=== PATIENT | male | born 1980 | race American Indian/Alaskan Native ===

== ENCOUNTER 2017-04-08 17:18 | Emergency (ER) | payer SELFPAY ==
[2017-04-08 17:22] VITALS: O2SAT 99; BMI 27.1
--- NOTE | 2017-04-08 18:23 | ED PDOC ---
Arrival/HPI - General Chief Complaint: Dental Pain Time Seen by Provider: 04/08/17 17:38 Historian: Patient - History of Present Illness Narrative History of Present Illness (Text): 04/08/17 18:23 36-year-old male presents today with left lower dental pain 2 days. Patient states he's been having pain in the left lower molar on-and-off every 7 or 8 months. Patient states something happen over the past 2 days and now the pain is severe. Patient describes a throbbing aching pain radiating into the left jaw coming from the left lower molar. Patient states she's been taking Motrin and Tylenol at home without improvement in his symptoms. He denies trismus or drooling. Denies fevers or chills. Denies any trauma or injury. No other complaints. Time/Duration: Other (2 DAYS) Symptom Course: Worsening Quality: Aching, Throbbing Severity Level: 7 Past Medical History - Provider Review Nursing Documentation Reviewed: Yes - Travel History Have you recently traveled outside [place] w/in the past 3 mons?: No - Tetanus Immunization Tetanus Immunization: Unknown - Psychiatric Hx Substance Use: No Family/Social History - Physician Review Nursing Documentation Reviewed: Yes Family/Social History: Unknown Family HX Smoking Status: Never Smoked Hx Alcohol Use: No Hx Substance Use: No Allergies/Home Meds Allergies/Adverse Reactions: Allergies Penicillins Allergy (Verified 04/08/17 17:22) URTICARIA Review of Systems - Review of Systems Constitutional: absent: Fatigue, Fevers ENT: Other (+ dental pain). absent: Sore Throat, Sinus Congestion Respiratory: absent: SOB, Cough Cardiovascular: absent: Chest Pain Gastrointestinal: absent: Abdominal Pain, Vomiting Musculoskeletal: absent: Arthralgias, Back Pain, Neck Pain Skin: absent: Rash, Pruritis Neurological: absent: Headache, Dizziness Psychiatric: absent: Anxiety, Depression Physical Exam Vital Signs Reviewed: Yes Vital Signs Temp Pulse Resp BP Pulse Ox 04/08/17 17:19 98.6 F 86 18 151/92 H 99 Temperature: Afebrile Blood Pressure: Hypertensive Pulse: Regular Respiratory Rate: Normal Appearance: Positive for: Well-Appearing, Non-Toxic, Comfortable Pain Distress: None Mental Status: Positive for: Alert and Oriented X 3 - Systems Exam Head: Present: Atraumatic. No: Swelling Conjunctiva: Present: Normal Mouth: Present: Moist Mucous Membranes, Normal Lips, Normal Tounge. No: Drooling, Trismus, Normal Teeth (+ ttp over left lower molar; no edema, no erythema, no abscess noted; no trismus or drooling. ) Pharnyx: Present: Normal. No: ERYTHEMA, EXUDATE, TONSILS ENLARGED, Peritonsilar Swelling, Uvular Deviation, Muffled/Hoarse Voice, Strider, Soft Palate/Uvular Edema Nose (External): Present: Atraumatic Neck: Present: Normal Range of Motion, Trachea Midline. No: Lymphadenopathy Respiratory/Chest: Present: Clear to Auscultation, Good Air Exchange. No: Respiratory Distress, Accessory Muscle Use Cardiovascular: Present: Regular Rate and Rhythm, Normal S1, S2. No: Murmurs Neurological: Present: GCS=15 Skin: Present: Warm, Dry, Normal Color. No: Rashes Psychiatric: Present: Alert, Oriented x 3 Medical Decision Making ED Course and Treatment: 04/08/17 18:17 Patient is nontoxic well-appearing in no distress with stable vital signs No trismus or drooling, moist mucous membranes Clindamycin, Toradol, tramadol Patient reassessment: Patient is feeling better after medications. I advised follow-up with the dentist within the next 2 days. I advised immediate return is symptoms worsen persist or if new concerning symptoms develop Patient verbalized full agreement with and understanding of discharge instructions. States that he agrees with the plan and disposition. Verbalized and repeated discharge instructions and plan. I have given the patient opportunity to ask any additional questions. all aspects of this case were discussed the attending of record. Impression: Toothache Motrin every 6 hours as needed for pain tramadol; 1 tablet every 6 hours as needed for moderate to severe pain; may cause drowsiness. Clindamycin 1 tablet 3 times daily x 10 days Follow-up with the dentist within the next 2 days Follow up with the primary care physician within the next 2 days. Return immediately if symptoms worsen persist or if new concerning symptoms develop - Medication Orders Current Medication Orders: Clindamycin HCl (Cleocin) 150 mg PO STAT STA PRN Reason: Protocol Stop: 04/08/17 18:16 Ketorolac Tromethamine (Toradol) 60 mg IM STAT STA Stop: 04/08/17 18:16 Disposition/Present on Arrival - Present on Arrival Any Indicators Present on Arrival: No History of DVT/PE: No History of Uncontrolled Diabetes: No Urinary Catheter: No History of Decub. Ulcer: No History Surgical Site Infection Following: None - Disposition Have Diagnosis and Disposition been Completed?: Yes Diagnosis: Toothache Disposition: HOME/ ROUTINE Disposition Time: 18:16 Patient Plan: Discharge Condition: GOOD Discharge Instructions (ExitCare): Toothache (ED) Additional Instructions: Motrin every 6 hours as needed for pain tramadol; 1 tablet every 6 hours as needed for moderate to severe pain; may cause drowsiness. Clindamycin 1 tablet 3 times daily x 10 days Follow-up with the dentist within the next 2 days Follow up with the primary care physician within the next 2 days. Return immediately if symptoms worsen persist or if new concerning symptoms develop Prescriptions: Clindamycin [Cleocin] 150 mg PO TID #21 cap Ibuprofen [Motrin] 600 mg PO Q6H PRN #20 tab PRN Reason: pain/fever reduction traMADol [Ultram] 50 mg PO Q6H PRN #6 tab PRN Reason: moderate to severe pain Referrals: Yared Al DMD [Non-Staff] - Follow up with primary [facility] [place] [Outside] - Follow up with primary Fili Dickinson MD [Staff Provider] - Follow up with primary Forms: WORK NOTE
[2017-04-08 18:36] VITALS: BP 131/65; PULSE 85; RESP 20; TEMP 97
== END 2017-04-08 19:00 | disposition home or self-care (01) ==
LOC: ED 17:18
DX: K08.89 Other specified disorders of teeth and supporting structures (principal)
CPT/HCPCS: 96372; 99283; J1885

== ENCOUNTER 2017-08-15 16:05 | Emergency (ER) | payer OTHER ==
[2017-08-15 16:06] VITALS: BMI 27.1
[2017-08-15 16:47] VITALS: TEMP 98.7; O2SAT 99
[2017-08-15] MEDS ORDERED: cefTRIAXone (Rocephin) 250 mg Inj IM STA (17:33)
[2017-08-15 17:36] LABS: URINE BILIRUBIN NEGATIVE (NEGATIVE); URINE BLOOD NEGATIVE (NEGATIVE); URINE GLUCOSE (UA) NEGATIVE (NEGATIVE); URINE KETONE NEGATIVE (NEGATIVE); URINE LEUKOCYTE ESTERASE NEGATIVE Leu/uL (NEGATIVE); URINE PROTEIN NEGATIVE mg/dL (<30 mg/dL); URINE UROBILINOGEN 0.2 E.U./dL (<1 E.U./dL)
[2017-08-15 17:37] LABS: URINE COLOR YELLOW (YELLOW)
[2017-08-15 17:38] LABS: URINE APPEARANCE CLEAR (CLEAR)
--- NOTE | 2017-08-15 17:41 | ED PDOC ---
Arrival/HPI - General Chief Complaint: Male Genitourinary Time Seen by Provider: 08/15/17 17:32 Historian: Patient - History of Present Illness Narrative History of Present Illness (Text): 08/15/17 17:40 A 36 year old male, with no significant past medical history, presents to the emergency department complaining of an isolated episode of blood tinged in his urine earlier today. Patient notes mild suprapubic discomfort. He denies any unprotected sexual contact besides his fiance of 8 months. Patient denies any fever, chills, rigors, nausea, vomiting, back pain, or any other complaints. Patient denies history of kidney stones. Time/Duration: Other (earlier today) Symptom Course: Unchanged Quality: Other Context: Home Past Medical History - Provider Review Nursing Documentation Reviewed: Yes - Infectious Disease Hx of Infectious Diseases: None - Tetanus Immunization Tetanus Immunization: Unknown - Psychiatric Hx Substance Use: No - Anesthesia Hx Anesthesia: No Family/Social History - Physician Review Nursing Documentation Reviewed: Yes Family/Social History: No Known Family HX Smoking Status: Never Smoked Hx Alcohol Use: No Hx Substance Use: No Allergies/Home Meds Allergies/Adverse Reactions: Allergies Penicillins Allergy (Verified 04/08/17 17:22) URTICARIA Home Medications: Home Meds Medication Instructions Recorded Confirmed No Known Home Med 08/15/17 08/15/17 Review of Systems - Physician Review All systems were reviewed & negative as marked: Yes - Review of Systems Constitutional: absent: Fevers, Night Sweats Gastrointestinal: absent: Nausea, Vomiting Genitourinary Male: Hematuria (1 episode) Musculoskeletal: absent: Back Pain Physical Exam Vital Signs Reviewed: Yes Vital Signs Temp Pulse Resp BP Pulse Ox 08/15/17 16:42 98.7 F 66 16 129/76 99 Temperature: Afebrile Blood Pressure: Normal Pulse: Regular Respiratory Rate: Normal Appearance: Positive for: Well-Appearing, Non-Toxic, Comfortable Pain Distress: None Mental Status: Positive for: Alert and Oriented X 3 - Systems Exam Head: Present: Atraumatic, Normocephalic Pupils: Present: PERRL Extroacular Muscles: Present: EOMI Conjunctiva: Present: Normal Mouth: Present: Moist Mucous Membranes Neck: Present: Normal Range of Motion Respiratory/Chest: Present: Clear to Auscultation, Good Air Exchange. No: Respiratory Distress, Accessory Muscle Use Cardiovascular: Present: Regular Rate and Rhythm, Normal S1, S2. No: Murmurs Abdomen: Present: Normal Bowel Sounds. No: Tenderness, Distention, Peritoneal Signs Back: Present: Normal Inspection Upper Extremity: Present: Normal Inspection. No: Cyanosis, Edema Lower Extremity: Present: Normal Inspection. No: Edema Neurological: Present: GCS=15, CN II-XII Intact, Speech Normal Skin: Present: Warm, Dry, Normal Color. No: Rashes Psychiatric: Present: Alert, Oriented x 3, Normal Insight, Normal Concentration Medical Decision Making ED Course and Treatment: 08/15/17 17:40 Impression: A 36 year old male with 1 episode of blood tinged in urine. Patient notes mild suprapubic discomfort. Plan: -- Urine culture, Urinalysis -- Rocephin, Zithromax -- Reassess and disposition Progress Notes: - Lab Interpretations Lab Results: Lab Results 08/15/17 17:15: Urine Color Yellow, Urine Appearance Clear, Urine pH 6.0, Ur Specific [place] 1.025, Urine Protein Negative, Urine Glucose (UA) Negative, Urine Ketones Negative, Urine Blood Negative, Urine Nitrate Negative, Urine Bilirubin Negative, Urine Urobilinogen 0.2, Ur Leukocyte Esterase Negative I have reviewed the lab results: Yes - Medication Orders Current Medication Orders: Discontinued Medications Azithromycin (Zithromax) 1,000 mg PO STAT STA PRN Reason: Protocol Stop: 08/15/17 17:35 Last Admin: 08/15/17 17:43 Dose: 1,000 mg Ceftriaxone Sodium (Rocephin) 250 mg IM STAT STA PRN Reason: Protocol Stop: 08/15/17 17:34 - Scribe Statement The provider has reviewed the documentation as recorded by the Clariibyessenia [place] training under Irma Pham Provider Scribe Attestation: All medical record entries made by the Scribe were at my direction and personally dictated by me. I have reviewed the chart and agree that the record accurately reflects my personal performance of the history, physical exam, medical decision making, and the department course for this patient. I have also personally directed, reviewed, and agree with the discharge instructions and disposition. Disposition/Present on Arrival - Present on Arrival Any Indicators Present on Arrival: No History of DVT/PE: No History of Uncontrolled Diabetes: No Urinary Catheter: No History of Decub. Ulcer: No History Surgical Site Infection Following: None - Disposition Have Diagnosis and Disposition been Completed?: Yes Diagnosis: Hematuria, Dysuria Disposition: HOME/ ROUTINE Disposition Time: 18:36 Patient Plan: Discharge Patient Problems: Current Active Problems Problem Status Onset Dysuria Acute Hematuria Acute Condition: IMPROVED Discharge Instructions (ExitCare): Dysuria (ED) Print Language: LUXEMBOURGISH Additional Instructions: Drink plenty of water. You have been treated for "infection" in the urine. Practice pelvic rest over the next week, and we avice testing of your partner meanwhile. return for worsening symptoms. WE have no definitive evidence of you tyshawn a sexually transmited disease but you were presumtively treated for chlymidia /gonorrhea. . Forms: [facility] (Panamanian)
[2017-08-15 18:51] VITALS: BP 125/71; PULSE 63; RESP 18
== END 2017-08-15 18:52 | disposition home or self-care (01) ==
LOC: ED 16:05
DX: R30.0 Dysuria (principal); R31.9 Hematuria, unspecified; Z88.0 Allergy status to penicillin
CPT/HCPCS: 81003; 87086; 96372; 99283; J0696

== ENCOUNTER 2017-10-13 18:39 | Emergency (ER) | payer BC ==
[2017-10-13 18:40] VITALS: BMI 27.1
--- NOTE | 2017-10-13 19:13 | ED PDOC ---
Arrival/HPI - General Chief Complaint: Chest Pain Time Seen by Provider: 10/13/17 19:09 Historian: Patient - History of Present Illness Narrative History of Present Illness (Text): 10/13/17 19:10 pt p/w + sudden onset of left chest pain, worse with movement; at most pain is rated at 7/10; pt states chest pain started last night, remained constant and initially tolerable pain but today, while at work the pain became more intolerable; pt states no fever/chills/sweats, no sob/palpitations, no lightheadedness, no dizziness, no abd pain, no n/v, no numbness/tingling, no urinary/bowel changes, no fall/trauma/sick contact, no travel; pt denied recent surgery; pt denied any rashes/lesions; pt denied recent URI/infection; pt is here for further eval; pt's without other complaints 10/13/17 19:20 10/13/17 19:21 10/13/17 19:23 Family hx: unremarkable no AMI to immediate family members < 50yo no sudden with immediate family members no coagulopathy with immediate family members Time/Duration: 24 hours Symptom Onset: Sudden Symptom Course: Unchanged Quality: Stabbing Severity Level: 7, Severe Context: Home Past Medical History - Provider Review Nursing Documentation Reviewed: Yes - Travel History Have you recently traveled outside [place] w/in the past 3 mons?: No - Past History Past History: No Previous - Infectious Disease Hx of Infectious Diseases: None - Tetanus Immunization Tetanus Immunization: Unknown - Psychiatric Hx Substance Use: No - Anesthesia Hx Anesthesia: No - Suicidal Assessment Feels Threatened In Home Enviroment: No Family/Social History - Physician Review Nursing Documentation Reviewed: Yes Family/Social History: No Known Family HX Smoking Status: Never Smoked Hx Alcohol Use: No Hx Substance Use: No Hx Substance Use Treatment: No Allergies/Home Meds Allergies/Adverse Reactions: Allergies Penicillins Allergy (Verified 10/13/17 18:52) URTICARIA Review of Systems - Review of Systems Constitutional: Normal Eyes: Normal ENT: Normal Respiratory: Normal Cardiovascular: Chest Pain Gastrointestinal: Normal Genitourinary Male: Normal Musculoskeletal: Normal Skin: Normal Neurological: Normal Endocrine: Normal Hemo/Lymphatic: Normal Psychiatric: Normal Physical Exam Vital Signs Reviewed: Yes Vital Signs Temp Pulse Pulse Resp BP Pulse Ox 10/13/17 19:30 77 10/13/17 19:18 98.3 F 80 18 136/81 99 Temperature: Afebrile Blood Pressure: Normal Pulse: Regular Respiratory Rate: Normal Appearance: Positive for: Well-Appearing, Other (slightly uncomfortable, alert/ awake, NAD, resting in bed, cooperative) Pain Distress: None Mental Status: Positive for: Alert and Oriented X 3 - Systems Exam Head: Present: Atraumatic, Normocephalic Pupils: Present: PERRL Extroacular Muscles: Present: EOMI Conjunctiva: Present: Normal Ears: Present: Normal Mouth: Present: Moist Mucous Membranes, Normal Teeth Pharnyx: Present: Normal Nose (External): Present: Atraumatic Nose (Internal): Present: Normal Inspection Neck: Present: Normal Range of Motion, Trachea Midline. No: MIDLINE TENDERNESS Respiratory/Chest: Present: Clear to Auscultation, Good Air Exchange, Other (no chest wall skin lesions noted, no crepitus; + left upper chest wall region point tenderness, no fluctuance noted; CTA b/l, no w/r/r, no accessory muscle use noted, no tachypenia) Cardiovascular: Present: Regular Rate and Rhythm, Normal S1, S2. No: Murmurs, Tachycardic Abdomen: Present: Normal Bowel Sounds, Other (well nourished male, no focal tenderness, no masses/rebound/guarding/rigidity, no rosenbaum's sign, no mcburney' s point tenderness) Back: Present: Normal Inspection. No: CVA Tenderness, Midline Tenderness Upper Extremity: Present: Normal Inspection, Edema, Normal ROM, NORMAL PULSES, Neurovascularly Intact, Capillary Refill < 2s Lower Extremity: Present: Normal Inspection, NORMAL PULSES, Normal ROM, Neurovascularly Intact, Capillary Refill < 2 s. No: CALF TENDERNESS, Carolin's Sign Neurological: Present: GCS=15, CN II-XII Intact, Speech Normal Skin: Present: Warm, Normal Color Psychiatric: Present: Alert, Oriented x 3 Medical Decision Making ED Course and Treatment: 10/13/17 19:14 Impression: chest pain, atypical i have consider all the differential diagnosis regarding pt's chief medical complaints/clinical findings, including but are not limited to: atypical chest pain, unlikely PE/ACS; possible costrocondritis A/P: chest pain - ekg - xray - observe - supportive care 10/13/17 20:38 pt is doing well currently pt is not in any severe pain pt is made aware of pt's medical results pt is encouraged fluids pt will f/u as directed pt will be discharged home Re-evaluation Time: 20:29 Reassessment Condition: Improving,but remains with symptoms - RAD Interpretation Radiology Orders: 10/13/17 19:09 CHEST TWO VIEWS (PA/LAT) [RAD] Stat NAD Inside Sales Associate: ED Physician - EKG Interpretation EKG Interpretation (Text): 10/13/17 19:16 NSR at 75 bpm, normal axis, no ectopy, inverted T in leads III, no st changes, otherwise WNL/Normal EKG; no changes compare with old ekg 06/201510/13/17 19:18 Interpreted by ED Physician: Yes Type: 12 lead EKG Comparison: Similar to previous EKG - Medication Orders Current Medication Orders: Discontinued Medications Ibuprofen (Motrin Tab) 600 mg PO STAT STA Stop: 10/13/17 19:10 Last Admin: 10/13/17 19:27 Dose: 600 mg MAR Pain/Vitals Document 10/13/17 19:27 YP (Rec: 10/13/17 19:27 YP [id number]) Pain Reassessment Is This A Pain ReAssessment? No Sleep Is patient sleeping during reassessment? No Presence of Pain Presence of Pain Yes Disposition/Present on Arrival - Present on Arrival Any Indicators Present on Arrival: No History of DVT/PE: No History of Uncontrolled Diabetes: No Urinary Catheter: No History of Decub. Ulcer: No History Surgical Site Infection Following: None - Disposition Have Diagnosis and Disposition been Completed?: Yes Diagnosis: Atypical chest pain Disposition: HOME/ ROUTINE Disposition Time: 20:35 Patient Plan: Discharge Condition: STABLE Discharge Instructions (ExitCare): Chest Pain (ED) Print Language: AZERBAIJANI Additional Instructions: Make sure to see your doctor in 1-2 days DRINK PLENTY OF FLUIDS AVOID heavy weight bearing take your medications as prescribed RETURN TO ED IF worse pain, cant breath, persistent vomiting, high fever >101- 102 for hours, altered behavior, unable to urinate, heavy/persistent bleeding, passing out, chest pain, or other medical emergencies Prescriptions: Ibuprofen [Motrin] 600 mg PO TID PRN #30 tab PRN Reason: Pain, Moderate (4-7) Referrals: PCP,NO [Primary Care Provider] - Follow up with primary Clinton De Los Santos DO [Staff Provider] - Follow up with primary Forms: [facility] (Malay), WORK NOTE
[2017-10-13 19:19] VITALS: RESP 18; TEMP 98.3
[2017-10-13 20:40] VITALS: BP 120/55; PULSE 84; O2SAT 98
--- NOTE | 2017-10-14 19:33 | CARD ---
APPROVED REPORT EKG Measurement Heart [id number] <Conclusion> Poor data quality, interpretation may be adversely affected Normal sinus rhythm Normal ECG
== END 2017-10-13 20:44 | disposition home or self-care (01) ==
LOC: ED 18:39
DX: R07.89 Other chest pain (principal)

== ENCOUNTER 2017-11-11 23:26 | Emergency (ER) | payer BC ==
[2017-11-11 23:38] VITALS: BMI 28.1
--- NOTE | 2017-11-11 23:43 | ED PDOC ---
Arrival/HPI - General Historian: Patient - General Time Seen by Provider: 11/11/17 23:35 - History of Present Illness Narrative History of Present Illness (Text): 11/11/17 23:36 37 year old, no significant pmh, penicillin, working in the freezer, complaining of coughing/throat pain and runny nose with fever x 2 days with no recent traveling. Aching throat pain, associated with dry coughing and runny nose, no fever or chills, no night sweat, no rash, no palpitation, no abdominal or pelvic pain, no numbness or tingling, no other medical or psychological complaints. (Titus Rubio) Past Medical History - Provider Review Nursing Documentation Reviewed: Yes - Past History Past History: No Previous - Infectious Disease Hx of Infectious Diseases: None - Tetanus Immunization Tetanus Immunization: Unknown - Psychiatric Hx Substance Use: No - Anesthesia Hx Anesthesia: No - Suicidal Assessment Feels Threatened In Home Enviroment: No Family/Social History - Physician Review Nursing Documentation Reviewed: Yes Family/Social History: Unknown Family HX Smoking Status: Never Smoked Hx Alcohol Use: No Hx Substance Use: No Hx Substance Use Treatment: No Allergies/Home Meds Allergies/Adverse Reactions: Allergies Penicillins Allergy (Severe, Verified 11/11/17 23:42) SWELLING Review of Systems - Review of Systems Constitutional: Fevers. absent: Fatigue Eyes: absent: Vision Changes ENT: Sore Throat, Rhinorrhea. absent: Hearing Changes Respiratory: Cough. absent: SOB, Sputum, Wheezing Cardiovascular: absent: Chest Pain Gastrointestinal: absent: Abdominal Pain, Diarrhea, Nausea, Vomiting Genitourinary Male: absent: Dysuria Musculoskeletal: absent: Arthralgias, Back Pain Skin: absent: Rash, Pruritis Neurological: absent: Headache Psychiatric: absent: Anxiety, Depression Physical Exam Vital Signs Reviewed: Yes Temperature: Afebrile Blood Pressure: Normal Pulse: Regular Respiratory Rate: Normal Appearance: Positive for: Well-Appearing, Non-Toxic, Comfortable Pain Distress: Mild Mental Status: Positive for: Alert and Oriented X 3 - Systems Exam Head: Present: Atraumatic, Normocephalic Pupils: Present: PERRL Extroacular Muscles: Present: EOMI Conjunctiva: Present: Normal Ears: Present: NORMAL TM, Normal Canal. No: Erythema Mouth: Present: Moist Mucous Membranes Pharnyx: No: ERYTHEMA, EXUDATE, TONSILS ENLARGED, Uvular Deviation, Muffled/ Hoarse Voice, Strider, Soft Palate/Uvular Edema Nose (External): Present: Atraumatic. No: Abrasion, Contusion, Laceration Nose (Internal): Present: Normal Inspection, No Active Bleeding, Rhinorrhea. No : Septal Hematoma, Epistaxis Neck: Present: Normal Range of Motion, Trachea Midline. No: MIDLINE TENDERNESS , Lymphadenopathy Respiratory/Chest: Present: Clear to Auscultation, Good Air Exchange. No: Respiratory Distress, Accessory Muscle Use, Wheezes, Decreased Breath Sounds, Rales, Retracting, Rhonchi, Tachypneic, Tender to Palpation Cardiovascular: Present: Regular Rate and Rhythm, Normal S1, S2. No: Murmurs Abdomen: Present: Normal Bowel Sounds. No: Tenderness, Distention, Peritoneal Signs, Rebound, Guarding Back: Present: Normal Inspection. No: CVA Tenderness, Midline Tenderness, Paraspinal Tenderness Upper Extremity: Present: Normal Inspection, Normal ROM, Neurovascularly Intact , Capillary Refill < 2s. No: Cyanosis, Edema, Tenderness, Swelling, Deformity Lower Extremity: Present: Normal Inspection, NORMAL PULSES, Normal ROM. No: Edema, Tenderness, Swelling, Deformity Neurological: Present: GCS=15, CN II-XII Intact, Speech Normal, Motor Func Grossly Intact, Gait Normal, Memory Normal Skin: Present: Warm, Dry, Normal Color. No: Rashes Psychiatric: Present: Alert, Oriented x 3, Normal Insight, Normal Concentration Vital Signs Temp Pulse Resp BP Pulse Ox 11/12/17 01:12 98.1 F 75 18 142/82 99 11/11/17 23:40 98.5 F 64 17 147/69 100 Medical Decision Making - Lab Interpretations I have reviewed the lab results: Yes - RAD Interpretation It Trainee: Radiologist ED Course and Treatment: 11/11/17 23:46 -rapid flu -chest xray 11/12/17 00:56 -Chest xray show no active disease -Rapid flu is negative -Discharge home with tamiflu, tylenol, tessalon, stay hydrated, follow up with your own pmd within 2 days, return to the ER for any new or worsening signs or symptoms. (Titus Rubio) - Lab Interpretations Lab Results: Lab Results 11/11/17 23:30: Influenza Typ A,B (EIA) Negative for flu a/b - RAD Interpretation Radiology Orders: 11/11/17 23:43 CHEST TWO VIEWS (PA/LAT) [RAD] Stat Chest xray: no radiographic evidence of pneumonia (Titus Rubio) - Medication Orders Current Medication Orders: Discontinued Medications Ibuprofen (Motrin Tab) 600 mg PO STAT STA Stop: 11/11/17 23:44 Last Admin: 11/11/17 23:57 Dose: 600 mg MAR Pain/Vitals Document 11/11/17 23:57 (Rec: 11/12/17 00:02 [id number]) Pain Reassessment Is This A Pain ReAssessment? Yes Sleep Is patient sleeping during reassessment? 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 Disposition/Present on Arrival - Present on Arrival Any Indicators Present on Arrival: No History of DVT/PE: No History of Uncontrolled Diabetes: No Urinary Catheter: No History of Decub. Ulcer: No History Surgical Site Infection Following: None - Disposition Have Diagnosis and Disposition been Completed?: Yes Disposition Time: 23:46 Patient Plan: Discharge - Disposition Diagnosis: Flu-like symptoms Disposition: HOME/ ROUTINE Condition: GOOD Additional Instructions: -Discharge home with tamiflu, tylenol, tessalon, stay hydrated, follow up with your own pmd within 2 days, return to the ER for any new or worsening signs or symptoms. Prescriptions: Acetaminophen [Tylenol 325mg tab] 2 tab PO QID PRN #30 tab PRN Reason: Other Benzonatate [Tessalon Perles] 100 mg PO TID PRN #21 sgl PRN Reason: Other Oseltamivir Phosphate [Tamiflu] 75 mg PO BID #10 capsule Referrals: PCP,NO [Primary Care Provider] - Follow up with primary [facility] [Outside] - Follow up with primary Forms: WORK NOTE
[2017-11-12 01:13] VITALS: BP 142/82; PULSE 75; RESP 18; TEMP 98.1; O2SAT 99
--- NOTE | 2017-11-12 07:31 | RAD ---
HISTORY: cough COMPARISON: Comparison is made with 10/13/2017 TECHNIQUE: Chest PA and lateral FINDINGS: LUNGS: No evidence of new infiltrate or consolidation in the lungs. PLEURA: No significant pleural effusion identified. No pneumothorax apparent. CARDIOVASCULAR: Normal. OSSEOUS STRUCTURES: No significant abnormalities. VISUALIZED UPPER ABDOMEN: Normal. OTHER FINDINGS: None. IMPRESSION: No radiographic evidence of pneumonia.
== END 2017-11-12 01:12 | disposition home or self-care (01) ==
LOC: ED 23:26
DX: J11.1 Influenza due to unidentified influenza virus with other respiratory manifestations (principal)

== ENCOUNTER 2018-02-26 19:00 | Emergency (ER) | payer BC ==
[2018-02-26 19:15] VITALS: BMI 27.3
--- NOTE | 2018-02-26 20:03 | ED PDOC ---
Arrival/HPI - General Chief Complaint: Upper Extremity Problem/Injury Time Seen by Provider: 02/26/18 19:34 Historian: Patient - History of Present Illness Narrative History of Present Illness (Text): 02/26/18 19:49 Patient is a 37 year old male with no significant past medical history, who presents of the emergency department complaining of specifically left lateral chest area discomfort that started today. Patient reports that his pain started today after lifting heavy palette at work. Patient states that his chest hurts with palpation or positional changes. Patient denies any blunt trauma or dyspnea. He also states that aside from his current complaint he has a history of chronic headaches for the past month which occurs upon awakening only and improves as the day progresses. He admits to poor sleeping habits. Patient denies any EtoH or drug use, and denies history of head trauma. Time/Duration: Other (Today) Symptom Onset: Gradual Symptom Course: Unchanged Context: Work Past Medical History - Provider Review Nursing Documentation Reviewed: Yes - Past History Past History: No Previous - Infectious Disease Hx of Infectious Diseases: None - Tetanus Immunization Tetanus Immunization: Unknown - Cardiac Hx Cardiac Disorders: No - Pulmonary Hx Respiratory Disorders: No - Neurological Hx Neurological Disorder: No - HEENT Hx HEENT Disorder: No - Renal Hx Renal Disorder: No - Endocrine/Metabolic Hx Endocrine Disorders: No - Hematological/Oncological Hx Blood Disorders: No - Integumentary Hx Dermatological Disorder: No - Musculoskeletal/Rheumatological Hx Musculoskeletal Disorders: No - Gastrointestinal Hx Gastrointestinal Disorders: No - Genitourinary/Gynecological Hx Genitourinary Disorders: No - Psychiatric Hx Psychophysiologic Disorder: No Hx Substance Use: No - Anesthesia Hx Anesthesia: No - Suicidal Assessment Feels Threatened In Home Enviroment: No Family/Social History - Physician Review Nursing Documentation Reviewed: Yes Family/Social History: No Known Family HX Smoking Status: Never Smoked Hx Alcohol Use: No Hx Substance Use: No Hx Substance Use Treatment: No Allergies/Home Meds Allergies/Adverse Reactions: Allergies Penicillins Allergy (Severe, Verified 02/26/18 19:15) SWELLING Review of Systems - Physician Review All systems were reviewed & negative as marked: Yes - Review of Systems Respiratory: absent: SOB Cardiovascular: Other (Chest discomfort in lateral left side) Neurological: Headache Physical Exam Vital Signs Reviewed: Yes Vital Signs Temp Pulse Resp BP Pulse Ox 02/26/18 22:45 98.7 F 70 18 151/97 H 100 02/26/18 21:00 98.8 F 82 18 135/72 98 02/26/18 19:15 98.9 F 71 16 130/68 98 Temperature: Afebrile Blood Pressure: Normal Pulse: Regular Respiratory Rate: Normal Appearance: Positive for: Well-Appearing Mental Status: Positive for: Alert and Oriented X 3 - Systems Exam Head: Present: Atraumatic, Normocephalic Pupils: Present: PERRL Extroacular Muscles: Present: EOMI Conjunctiva: Present: Normal Ears: Present: NORMAL TM Mouth: Present: Moist Mucous Membranes Neck: Present: Normal Range of Motion Respiratory/Chest: Present: Clear to Auscultation, Good Air Exchange, Tender to Palpation (Left lateral chest area). No: Respiratory Distress, Accessory Muscle Use Cardiovascular: Present: Regular Rate and Rhythm, Normal S1, S2. No: Murmurs Abdomen: No: Tenderness, Distention, Peritoneal Signs Back: Present: Normal Inspection Upper Extremity: Present: Normal Inspection, Normal ROM. No: Cyanosis, Edema Lower Extremity: Present: Normal Inspection, Normal ROM. No: Edema Neurological: Present: GCS=15, CN II-XII Intact, Speech Normal Skin: Present: Warm, Dry, Normal Color. No: Rashes Psychiatric: Present: Alert, Oriented x 3, Normal Insight, Normal Concentration Medical Decision Making ED Course and Treatment: 02/26/18 20:08 Impression: Patient is a 37 year old male complaining of left lateral chest area discomfort which started earlier today at work. Differential Diagnosis included but are not limited to: Musculoskeletal strain vs. pneumothorax; Tension headache. Plan: -- Head CT without contrast -- Chest X-ray -- Reassess and disposition Prior Visits: Notes and results from previous visits were reviewed. Progress Notes: 02/26/18 23:21 CXR Impression: As read by me, no acute process. EXAM: CT Head Without Intravenous Contrast Dictated and Authenticated by: Farhad Clifford MD 02/26/2018 11:31 PM IMPRESSION: 1. No acute intracranial abnormality. 02/26/18 23:40 On re-evaluation, patient feels better and is in no acute distress. I have discussed the results and plan with the patient, who expresses understanding. Patient in agreement with plan to be discharged home. Patient is stable for discharge. Patient was instructed to follow up with physician or return if symptoms worsen or new concerning symptoms arise. - RAD Interpretation Radiology Orders: 02/26/18 19:41 HEAD W/O CONTRAST [CT] Stat CHEST TWO VIEWS (PA/LAT) [RAD] Stat - Medication Orders Current Medication Orders: Ibuprofen (Motrin Tab) 600 mg PO STAT STA Stop: 02/26/18 23:34 - Scribe Statement The provider has reviewed the documentation as recorded by the Scribe Williams Moreno Provider Scribe Attestation: All medical record entries made by the Scribe were at my direction and personally dictated by me. I have reviewed the chart and agree that the record accurately reflects my personal performance of the history, physical exam, medical decision making, and the department course for this patient. I have also personally directed, reviewed, and agree with the discharge instructions and disposition. Disposition/Present on Arrival - Present on Arrival Any Indicators Present on Arrival: No History of DVT/PE: No History of Uncontrolled Diabetes: No Urinary Catheter: No History of Decub. Ulcer: No History Surgical Site Infection Following: None - Disposition Have Diagnosis and Disposition been Completed?: Yes Diagnosis: Headache, Muscle strain of chest wall Disposition: HOME/ ROUTINE Disposition Time: 23:35 Patient Plan: Discharge Patient Problems: Current Active Problems Problem Status Onset Headache Acute Muscle strain of chest wall Acute Condition: GOOD Discharge Instructions (ExitCare): Muscle Strain (DC), Headache, Adult (DC) Additional Instructions: Get proper rest/avoid strenuous physical activity/no heavy lifting/take meds as prescribed/follow up with your doctor this week Prescriptions: Naproxen [Naprosyn] 500 mg PO BID PRN #14 tab PRN Reason: Pain Referrals: PCP,NO [Primary Care Provider] - Follow up with primary Forms: [employer] (Indonesian), WORK NOTE
[2018-02-26 22:37] VITALS: RESP 18
[2018-02-26 22:45] VITALS: TEMP 98.7
--- NOTE | 2018-02-26 23:31 | CT ---
EXAM: CT Head Without Intravenous Contrast EXAM DATE/TIME: 02/26/2018 7:41 PM CLINICAL HISTORY: The patient age is 37 years old and is male; Pain; Headache; Headache not specified Facility exam id and description: Ct heads head w/o contrast TECHNIQUE: Axial computed tomography images of the head/brain without intravenous contrast. All CT scans at this facility use one or more dose reduction techniques, viz.: automated exposure control; ma/kV adjustment per patient size (including targeted exams where dose is matched to indication; i.e. head); or iterative reconstruction technique. Coronal and sagittal reformatted images were created and reviewed. COMPARISON: No relevant prior studies available. FINDINGS: Brain: The white-diehl differentiation is preserved demonstrating no acute territorial type infarct. No acute intracranial hemorrhage is seen. No significant white matter disease visualized. There are tiny calcifications within the globus pallidus bilaterally, which are likely physiologic. Midline shift: There is no midline shift. Ventricles: No ventriculomegaly. Bones/joints: The calvarium demonstrates no evidence for a depressed fracture. Soft tissues: No acute abnormality. Sinuses: Unremarkable as visualized. No acute sinusitis. Mastoid air cells: No mastoid effusion. IMPRESSION: 1. No acute intracranial abnormality.
[2018-02-27 05:26] VITALS: BP 146/74; PULSE 82; O2SAT 99
--- NOTE | 2018-02-27 10:16 | RAD ---
HISTORY: pain COMPARISON: 11/12/2017 TECHNIQUE: Chest PA and lateral FINDINGS: LUNGS: No active pulmonary disease. PLEURA: No significant pleural effusion identified. No pneumothorax apparent. CARDIOVASCULAR: Normal. OSSEOUS STRUCTURES: No significant abnormalities. VISUALIZED UPPER ABDOMEN: Normal. OTHER FINDINGS: None. IMPRESSION: No active disease. No interval pathology noted
== END 2018-02-26 23:36 | disposition home or self-care (01) ==
LOC: ED 19:00
DX: R51 Headache (principal); S29.011A Strain of muscle and tendon of front wall of thorax, initial encounter; X50.0XXA Overexertion from strenuous movement or load, initial encounter; Y99.0 Civilian activity done for income or pay

== ENCOUNTER 2018-07-15 21:22 | Emergency (ER) | payer BC ==
[2018-07-15 21:30] VITALS: BMI 26.4
[2018-07-15 21:32] VITALS: TEMP 98.2
--- NOTE | 2018-07-15 22:33 | ED PDOC ---
Arrival/HPI - General Historian: Patient - History of Present Illness Narrative History of Present Illness (Text): CC: left sided musculoskeletal pain This is a 37 year old male with no significant PMH who presents left sided chest wall pain that started 2 days ago after lifting a heavy palette at work Pt reports that he has been dealing with this musculoskeletal pain for the past 1.5 years. The pain is exacerbated by lifting things at work, which he does regularly. Pt was last seen in the ED for similar symptoms 4 months ago. Pain is described as a sharp pinching, that encompasses the left pectoral muscle, nonradiating. Pain is relieved with motrin. He did not take motrin today. Pt reports that the pain is worse with palpation or positional changes. Patient denies any blunt trauma or dyspnea. He denies fever, chills, sob, abdominal pain, n/v/d, paresthesias, leg swelling or pain, visual changes, headache. PMH: left sided chest musculoskeletal pain PSH: none Meds: Motrin as needed Allx: PCN Social history: denies etoh, smoking or illicit drug use PMD: Muhammed Time/Duration: < week Symptom Onset: Sudden Symptom Course: Worsening Quality: Other (sharp pinching) <Dinesh Cespedes - Last Filed: 07/16/18 05:27> <Curtis Amador - Last Filed: 07/16/18 05:48> - General Chief Complaint: Chest Pain Time Seen by Provider: 07/15/18 22:09 Past Medical History - Provider Review Nursing Documentation Reviewed: Yes - Past History Past History: No Previous - Infectious Disease Hx of Infectious Diseases: None - Tetanus Immunization Tetanus Immunization: Unknown - Cardiac Hx Cardiac Disorders: No - Pulmonary Hx Respiratory Disorders: No - Neurological Hx Neurological Disorder: No - HEENT Hx HEENT Disorder: No - Renal Hx Renal Disorder: No - Endocrine/Metabolic Hx Endocrine Disorders: No - Hematological/Oncological Hx Blood Disorders: No - Integumentary Hx Dermatological Disorder: No - Musculoskeletal/Rheumatological Hx Musculoskeletal Disorders: No - Gastrointestinal Hx Gastrointestinal Disorders: No - Genitourinary/Gynecological Hx Genitourinary Disorders: No - Psychiatric Hx Psychophysiologic Disorder: No Hx Substance Use: No - Anesthesia Hx Anesthesia: No - Suicidal Assessment Feels Threatened In Home Enviroment: No <Dinesh Cespedes - Last Filed: 07/16/18 05:27> Family/Social History - Physician Review Nursing Documentation Reviewed: Yes Family/Social History: Unknown Family HX Smoking Status: Never Smoked Hx Alcohol Use: No Hx Substance Use: No Hx Substance Use Treatment: No <Dinesh Cespedes - Filed: 07/16/18 05:27> Allergies/Home Meds <Dinesh Cespedes - Last Filed: 07/16/18 05:27> <BosRoberto salmeronyl - Last Filed: 07/16/18 05:48> Allergies/Adverse Reactions: Allergies Penicillins Allergy (Severe, Verified 02/26/18 19:15) SWELLING Review of Systems - Review of Systems Constitutional: Normal Eyes: Normal ENT: Normal Respiratory: Normal Cardiovascular: Normal Gastrointestinal: Normal Genitourinary Male: Normal Musculoskeletal: Other (chets wall tenderness) Skin: Normal Neurological: Normal Endocrine: Normal Hemo/Lymphatic: Normal Psychiatric: Normal <Dinesh Cespedes Filed: 07/16/18 05:27> Physical Exam Vital Signs Reviewed: Yes Vital Signs Temp Pulse Resp BP Pulse Ox 07/15/18 21:30 98.2 F 89 18 133/79 95 Temperature: Afebrile Blood Pressure: Normal Pulse: Regular Respiratory Rate: Normal Appearance: Positive for: Well-Appearing, Non-Toxic, Comfortable Pain Distress: None Mental Status: Positive for: Alert and Oriented X 3 - Systems Exam Head: Present: Atraumatic, Normocephalic Extroacular Muscles: Present: EOMI Conjunctiva: Present: Normal Mouth: Present: Moist Mucous Membranes Neck: Present: Normal Range of Motion Respiratory/Chest: Present: Clear to Auscultation, Other ((+) mild tenderness to palpation of the left pectoralis muscle). No: Respiratory Distress, Wheezes Cardiovascular: Present: Regular Rate and Rhythm, Normal S1, S2 Abdomen: Present: Normal Bowel Sounds. No: Tenderness, Distention, Rebound, Guarding Back: Present: Normal Inspection. No: CVA Tenderness Upper Extremity: Present: Normal Inspection, NORMAL PULSES Lower Extremity: Present: Normal Inspection, NORMAL PULSES. No: CALF TENDERNESS Neurological: Present: GCS=15 Skin: Present: Warm, Dry Psychiatric: Present: Alert <Dinesh Cespedes Filed: 07/16/18 05:27> Vital Signs Temp Pulse Resp BP Pulse Ox 07/16/18 00:03 98.2 F 72 17 142/82 100 07/15/18 23:40 72 17 142/82 100 07/15/18 21:30 98.2 F 89 18 133/79 95 <Curtis Amador - Last Filed: 07/16/18 05:48> Medical Decision Making ED Course and Treatment: Pt presents with lateral chest wall tenderness, worse on palpation and positional changes. Motrin 600 mg PO. Reassessment Condition: Improved - EKG Interpretation EKG Interpretation (Text): 07/15/18 22:38 EKG shows NSR at 74, QTc is 399, IN is 146; as read by ED attending. Interpreted by ED Physician: Yes - Medication Orders Current Medication Orders: Discontinued Medications Ibuprofen (Motrin Tab) 600 mg PO STAT STA Stop: 07/15/18 22:24 <Dinesh Cespedes - Last Filed: 07/16/18 05:27> - Medication Orders Current Medication Orders: Discontinued Medications Ibuprofen (Motrin Tab) 600 mg PO STAT STA Stop: 07/15/18 22:24 Last Admin: 07/15/18 22:46 Dose: 600 mg MAR Pain/Vitals Document 07/15/18 22:46 IT (Rec: 07/15/18 22:46 IT [id number]) Pain Reassessment Is This A Pain ReAssessment? No Sleep Is patient sleeping during reassessment? No Presence of Pain Presence of Pain Yes <Curtis Amador - Last Filed: 07/16/18 05:48> - Scribe Statement The provider has reviewed the documentation as recorded by the Scribe Patient Seen with Resident: In agreement with resident note which contains more details about the patient. Patient seen and evaluated with resident. Came up with plan and treatment together. <Curtis Amador - Last Filed: 07/16/18 05:48> Disposition/Present on Arrival - Present on Arrival Any Indicators Present on Arrival: No History of DVT/PE: No History of Uncontrolled Diabetes: No Urinary Catheter: No History of Decub. Ulcer: No History Surgical Site Infection Following: None - Disposition Have Diagnosis and Disposition been Completed?: Yes Disposition Time: 23:56 Patient Plan: Discharge <Dinesh Cespedes - Last Filed: 07/16/18 05:27> <Curtis Amador - Last Filed: 07/16/18 05:48> - Disposition Diagnosis: Costochondral chest pain Disposition: HOME/ ROUTINE Condition: GOOD Discharge Instructions (ExitCare): Chest Pain That Is Not Caused by the Heart (DC), Chest Pain (ED) Forms: [employer] (Sami), WORK NOTE
[2018-07-16 00:03] VITALS: BP 142/82; PULSE 72; RESP 17; O2SAT 100
--- NOTE | 2018-07-16 16:10 | CARD ---
APPROVED REPORT Date of service: 07/15/2018 EKG Measurement Heart [id number] <Conclusion> Normal sinus rhythm Normal ECG
== END 2018-07-16 00:04 | disposition home or self-care (01) ==
LOC: ED 21:22
DX: R07.89 Other chest pain (principal)

== ENCOUNTER 2018-07-28 19:53 | Emergency (ER) | payer BC ==
[2018-07-28 20:07] VITALS: BMI 27.3
[2018-07-28 20:09] VITALS: RESP 18; TEMP 98.9
[2018-07-28] MEDS ORDERED: Amoxicillin-Clav 500-125 mg Tab PO STA (20:16)
[2018-07-28] MEDS ORDERED: Naproxen 550 mg Tab PO STA (20:38)
--- NOTE | 2018-07-28 20:39 | ED PDOC ---
Arrival/HPI - General Chief Complaint: Dental Pain Time Seen by Provider: 07/28/18 20:06 Historian: Patient - History of Present Illness Narrative History of Present Illness (Text): 07/28/18 20:42 37-year-old male complaining of dental pain to the left lower teeth for the past 2 days. States that he has been taking [id number] pain medication with some improvement of pain. Otherwise denies any fever, chills, headache, ear pain, URI, sore throat, facial swelling. Has no additional complaints. Patient states that he has an appointment with his dentist this coming Sunday 5 days from today. Past Medical History - Past History Past History: No Previous - Infectious Disease Hx of Infectious Diseases: None - Tetanus Immunization Tetanus Immunization: Unknown - Cardiac Hx Cardiac Disorders: No - Pulmonary Hx Respiratory Disorders: No - Neurological Hx Neurological Disorder: No - HEENT Hx HEENT Disorder: No - Renal Hx Renal Disorder: No - Endocrine/Metabolic Hx Endocrine Disorders: No - Hematological/Oncological Hx Blood Disorders: No - Integumentary Hx Dermatological Disorder: No - Musculoskeletal/Rheumatological Hx Musculoskeletal Disorders: No - Gastrointestinal Hx Gastrointestinal Disorders: No - Genitourinary/Gynecological Hx Genitourinary Disorders: No - Psychiatric Hx Psychophysiologic Disorder: No Hx Substance Use: No - Anesthesia Hx Anesthesia: No - Suicidal Assessment Feels Threatened In Home Enviroment: No Family/Social History Family/Social History: No Known Family HX Smoking Status: Never Smoked Hx Alcohol Use: No Hx Substance Use: No Hx Substance Use Treatment: No Allergies/Home Meds Allergies/Adverse Reactions: Allergies Penicillins Allergy (Severe, Verified 02/26/18 19:15) SWELLING Review of Systems - Review of Systems Constitutional: absent: Fatigue, Fevers ENT: Other (dental pain). absent: Sore Throat, Rhinorrhea, Epistaxis, Sinus Congestion Respiratory: absent: SOB, Cough Skin: absent: Rash, Pruritis, Skin Lesions Neurological: absent: Headache, Dizziness Physical Exam Vital Signs Temp Pulse Resp BP Pulse Ox 07/28/18 20:07 98.9 F 94 H 18 124/80 96 Temperature: Afebrile Blood Pressure: Normal Pulse: Regular Respiratory Rate: Normal Appearance: Positive for: Well-Appearing, Non-Toxic, Comfortable Pain Distress: None Mental Status: Positive for: Alert and Oriented X 3 - Systems Exam Head: Present: Atraumatic, Normocephalic. No: Tenderness, Swelling Pupils: Present: PERRL Extroacular Muscles: Present: EOMI Conjunctiva: Present: Normal Ears: Present: Normal, NORMAL TM. No: Erythema Mouth: Present: Moist Mucous Membranes, Other (+wisdom tooth eruption to the L lower gums with tenderness to percussion, +mild tenderness to percussion of the L 2nd bottom molar with noted filling to the tooth, no gingival erythema or edema ) Pharnyx: Present: Normal. No: ERYTHEMA, EXUDATE, TONSILS ENLARGED, Peritonsilar Swelling, Uvular Deviation, Muffled/Hoarse Voice, Strider, Soft Palate/Uvular Edema Nose (External): Present: Atraumatic Nose (Internal): Present: Normal Inspection Neck: Present: Normal Range of Motion. No: Meningeal Signs, MIDLINE TENDERNESS, Lymphadenopathy Neurological: Present: GCS=15, CN II-XII Intact, Speech Normal, Motor Func Grossly Intact, Normal Sensory Function Skin: Present: Warm, Dry, Normal Color. No: Rashes Psychiatric: Present: Alert, Oriented x 3, Normal Insight, Normal Concentration Medical Decision Making ED Course and Treatment: 07/28/18 20:38 Plan : - Nazanin WHATLEY Advised to follow up with his dentist as scheduled without fail. Advised to take medication as prescribed. Return to the emergency room at any time for any new or worsening symptoms. Patient states he fully agrees with and understands discharge instructions. States that he agrees with the plan and disposition. Verbalized and repeated discharge instructions and plan. I have given the patient opportunity to ask any additional questions. - PA / [employer]LECTR[employer] SIGN SERVICER / Resident Statement MD/DO has reviewed & agrees with the documentation as recorded. Disposition/Present on Arrival - Present on Arrival Any Indicators Present on Arrival: No History of DVT/PE: No History of Uncontrolled Diabetes: No Urinary Catheter: No History of Decub. Ulcer: No History Surgical Site Infection Following: None - Disposition Have Diagnosis and Disposition been Completed?: Yes Diagnosis: Pain, dental Disposition: HOME/ ROUTINE Disposition Time: 20:30 Patient Plan: Discharge Patient Problems: Current Active Problems Problem Status Onset Pain, dental Acute Condition: STABLE Discharge Instructions (ExitCare): Dental Pain Additional Instructions: Thank you for letting us take care of you today. You were treated for dental pain. The emergency medical care you received today was directed at your acute symptoms. If you were prescribed any medication, please fill it and take as directed. It may take several days for your symptoms to resolve. Return to the Emergency Department if your symptoms worsen, do not improve, or if you have any other problems. Please see your dentist as scheduled without fail for re-evaluation and follow up. Bring any paperwork you were given at discharge with you along with any medications you are taking to your follow up visit. Our treatment cannot replace ongoing medical care by a primary care provider (PCP) outside of the emergency department. Thank you for allowing the [facility] team to be part of your care today. Prescriptions: Naproxen 500 mg PO BID #30 tab traMADol [Ultram] 50 mg PO TID PRN #12 tab PRN Reason: Pain, Severe (8-10) Forms: [facility] [employer] (Macedonian), WORK NOTE
[2018-07-28 21:41] VITALS: BP 125/78; PULSE 85; O2SAT 100
== END 2018-07-28 20:58 | disposition home or self-care (01) ==
LOC: ED 19:53
DX: K08.89 Other specified disorders of teeth and supporting structures (principal)

== ENCOUNTER 2018-08-30 13:15 | Emergency (ER) | payer BC ==
[2018-08-30 13:15] VITALS: BMI 27.3
[2018-08-30 13:36] VITALS: BP 141/80; PULSE 82; TEMP 98.5; O2SAT 98
[2018-08-30] MEDS ORDERED: Sodium Chloride 0.9% 1,000 ML IV STA (14:21)
[2018-08-30 15:01] LABS: BASO # 0.01 K/mm3 (0.0-2.0); BASO % 0.1 % (0.0-3.0); EOS # 0.1 (0.0-0.7); EOS % 0.9 % (1.5-5.0); GRAN # 3.88 (1.4-6.5); GRAN % 55.7 % (50.0-68.0); HEMOGLOBIN 14.7 g/dL (14.0-18.0); LYMPH # 2.3 (1.2-3.4); LYMPH % 33.3 % (22.0-35.0); MEAN CELL VOLUME 85.2 fl (80.0-105.0); MEAN CORPUSCULAR HEMOGLOBIN 28.7 pg (25.0-35.0); MEAN CORPUSCULAR HGB CONC 33.7 g/dl (31.0-37.0); MONO # 0.7 (0.1-0.6); RBC 5.12 10^6/uL (3.5-6.1); RED CELL DISTRIBUTION WIDTH 13.1 % (11.5-14.5)
[2018-08-30 15:12] LABS: ALB/GLOB RATIO 1.4 (1.1-1.8); ALBUMIN 4.3 g/dL (3.0-4.8); ALT/SGPT 66 U/L (7-56); AST/SGOT 33 U/L (17-59); BLOOD UREA NITROGEN 15 mg/dL (7-21); CALCIUM 9.5 mg/dL (8.4-10.5); GFR NON-AFRICAN AMERICAN > 60; LIPASE 30 U/L (23-300)
[2018-08-30 16:42] LABS: URINE BILIRUBIN NEGATIVE (NEGATIVE); URINE BLOOD NEGATIVE (NEGATIVE); URINE GLUCOSE (UA) NEGATIVE (NEGATIVE); URINE LEUKOCYTE ESTERASE NEGATIVE Leu/uL (NEGATIVE); URINE PROTEIN NEGATIVE mg/dL (<30 mg/dL); URINE UROBILINOGEN 0.2 E.U./dL (<1 E.U./dL)
--- NOTE | 2018-08-30 16:51 | CT ---
Date of service: 08/30/2018 PROCEDURE: CT Abdomen and Pelvis with contrast HISTORY: abd pain/diarrhea COMPARISON: None. TECHNIQUE: Contrast dose: 147 mL of Omnipaque 350 intravenously. Axial and reformatted coronal and sagittal CT images of the abdomen and pelvis were obtained after IV contrast administration. Radiation dose: Total exam DLP = 520.27 mGy-cm. This CT exam was performed using one or more of the following dose reduction techniques: Automated exposure control, adjustment of the mA and/or kV according to patient size, and/or use of iterative reconstruction technique. FINDINGS: LOWER THORAX: No evidence of acute pathology at the lung bases. LIVER: Unremarkable. No gross lesion or ductal dilatation. GALLBLADDER AND BILE DUCTS: Unremarkable. PANCREAS: Unremarkable. No gross lesion or ductal dilatation. SPLEEN: Unremarkable. ADRENALS: Unremarkable. No mass. KIDNEYS AND URETERS: Unremarkable. No hydronephrosis. No solid mass. VASCULATURE: Unremarkable. No aortic aneurysm. No aortic atherosclerotic calcification or mural plaque present. BOWEL: Questionable large bowel wall thickening versus incomplete distention. No evidence of high-grade bowel obstruction. Few scattered colonic diverticulosis noted in the distal colon. APPENDIX: No evidence of appendicitis. PERITONEUM: Unremarkable. No free fluid. No free air. LYMPH NODES: Unremarkable. No enlarged lymph nodes. BLADDER: Unremarkable. REPRODUCTIVE: Unremarkable. BONES: No acute fracture. OTHER FINDINGS: None. IMPRESSION: Questionable large bowel wall thickening. Please correlate clinically for colitis. Otherwise no evidence of acute pathology in the abdomen and pelvis.
[2018-08-30 16:56] LABS: URINE APPEARANCE CLEAR (CLEAR); URINE COLOR YELLOW (YELLOW)
--- NOTE | 2018-08-30 17:09 | ED PDOC ---
Arrival/HPI - General Chief Complaint: Abdominal Pain Time Seen by Provider: 08/30/18 13:37 Historian: Patient - History of Present Illness Narrative History of Present Illness (Text): 08/30/18 17:36 37-year-old male presents today with diffuse abdominal pain greatest in the lower abdomen for the past 2 days with multiple episodes of diarrhea. He denies fevers or chills. No chest pain or shortness of breath. He denies any urinary symptoms. Denies sick contacts. Denies headaches dizziness or weakness. No other complaints Time/Duration: Other (2 days) Symptom Onset: Gradual Symptom Course: Unchanged Quality: Cramping Severity Level: Mild Past Medical History - Provider Review Nursing Documentation Reviewed: Yes - Travel History Have you recently traveled outside [place] w/in the past 3 mons?: No - Past History Past History: No Previous - Infectious Disease Hx of Infectious Diseases: None - Tetanus Immunization Tetanus Immunization: Unknown - Cardiac Hx Cardiac Disorders: No - Pulmonary Hx Respiratory Disorders: No - Neurological Hx Neurological Disorder: No - HEENT Hx HEENT Disorder: No - Renal Hx Renal Disorder: No - Endocrine/Metabolic Hx Endocrine Disorders: No - Hematological/Oncological Hx Blood Disorders: No - Integumentary Hx Dermatological Disorder: No - Musculoskeletal/Rheumatological Hx Musculoskeletal Disorders: No - Gastrointestinal Hx Gastrointestinal Disorders: No - Genitourinary/Gynecological Hx Genitourinary Disorders: No - Psychiatric Hx Psychophysiologic Disorder: No Hx Substance Use: No - Anesthesia Hx Anesthesia: No Hx Anesthesia Reactions: No Hx Malignant Hyperthermia: No - Suicidal Assessment Feels Threatened In Home Enviroment: No Family/Social History - Physician Review Nursing Documentation Reviewed: Yes Family/Social History: Unknown Family HX Smoking Status: Never Smoked Hx Alcohol Use: No Hx Substance Use: No Hx Substance Use Treatment: No Allergies/Home Meds Allergies/Adverse Reactions: Allergies Penicillins Allergy (Severe, Verified 08/30/18 13:37) SWELLING Review of Systems - Review of Systems Constitutional: absent: Fatigue, Fevers Respiratory: absent: SOB, Cough Cardiovascular: absent: Chest Pain, Palpitations Gastrointestinal: Abdominal Pain, Diarrhea, Nausea. absent: Vomiting Genitourinary Male: absent: Dysuria, Frequency, Hematuria Musculoskeletal: absent: Arthralgias, Back Pain, Neck Pain Skin: absent: Rash, Pruritis Neurological: absent: Headache, Dizziness Psychiatric: absent: Anxiety, Depression Physical Exam Vital Signs Reviewed: Yes Vital Signs Temp Pulse Resp BP Pulse Ox 08/30/18 13:33 98.5 F 82 19 141/80 98 Temperature: Afebrile Blood Pressure: Normal Pulse: Regular Respiratory Rate: Normal Appearance: Positive for: Well-Appearing, Non-Toxic, Comfortable Pain Distress: None Mental Status: Positive for: Alert and Oriented X 3 - Systems Exam Head: Present: Atraumatic Mouth: Present: Moist Mucous Membranes Respiratory/Chest: Present: Clear to Auscultation Cardiovascular: Present: Regular Rate and Rhythm Abdomen: Present: Tenderness (minimal lower abdominal tenderness). No: Distention, Peritoneal Signs, Rebound, Guarding Back: Present: Normal Inspection Upper Extremity: Present: Normal ROM Lower Extremity: Present: Normal ROM Neurological: Present: GCS=15, Speech Normal Skin: Present: Warm, Dry, Normal Color. No: Rashes Psychiatric: Present: Alert, Oriented x 3 Medical Decision Making ED Course and Treatment: 08/30/18 16:54 Patient is nontoxic well appearing with stable vital signs presenting with lower abdominal pain CBC wnl CMP wnl Lipase wnl CAT scan FINDINGS: LOWER THORAX: No evidence of acute pathology at the lung bases. LIVER: Unremarkable. No gross lesion or ductal dilatation. GALLBLADDER AND BILE DUCTS: Unremarkable. PANCREAS: Unremarkable. No gross lesion or ductal dilatation. SPLEEN: Unremarkable. ADRENALS: Unremarkable. No mass. KIDNEYS AND URETERS: Unremarkable. No hydronephrosis. No solid mass. VASCULATURE: Unremarkable. No aortic aneurysm. No aortic atherosclerotic calcification or mural plaque present. BOWEL: Questionable large bowel wall thickening versus incomplete distention. No evidence of high-grade bowel obstruction. Few scattered colonic diverticulosis noted in the distal colon. APPENDIX: No evidence of appendicitis. PERITONEUM: Unremarkable. No free fluid. No free air. LYMPH NODES: Unremarkable. No enlarged lymph nodes. BLADDER: Unremarkable. REPRODUCTIVE: Unremarkable. BONES: No acute fracture. OTHER FINDINGS: None. IMPRESSION: Questionable large bowel wall thickening. Please correlate clinically for colitis. Otherwise no evidence of acute pathology in the abdomen and pelvis. pt reassessment; pt feeling better with medications. pt with lower abdominal pain and diarrhea; possible colitis on ct. will start Po course of cipro and flagyl. discussed risks and benefits of cipro including tendon rupture with patient. all aspects of this case were discussed the attending of record. Advised patient to take antibiotics as prescribed and f/u with GI specialist. advised immediate return if symptoms worsen,persist or if new symptoms develop. impression: colitis Impression: Abdominal pain tylenol every 4 hours as needed for pain. Pepcid one tablet daily Cipro one tablet twice daily x 7 days Flagyl one tablet three daily x7 days Follow up with primary care physician within the next 2 days follow up with the GI doctor within the next 2 days. Return immediately if symptoms worsen persist or if new symptoms develop: High fevers, increasing pain, vomiting, diarrhea or any other concerning symptoms develop 08/30/18 17:39 Reassessment Condition: Re-examined, Improved - Lab Interpretations Lab Results: 08/30/18 14:45 08/30/18 14:45 Lab Results 08/30/18 14:45: WBC 7.0, RBC 5.12, Hgb 14.7, Hct 43.6, MCV 85.2, MCH 28.7, MCHC 33.7, RDW 13.1, Plt Count 250, MPV 10.0, Gran % 55.7, Lymph % (Auto) 33.3, Isabela % (Auto) 10.0 H, Eos % (Auto) 0.9 L, Baso % (Auto) 0.1, Gran # 3.88, Lymph # (Auto) 2.3, Isabela # (Auto) 0.7 H, Eos # (Auto) 0.1, Baso # (Auto) 0.01 08/30/18 14:45: Sodium 140, Potassium 4.2, Chloride 103, Carbon Dioxide 29, Anion Gap 13, BUN 15, Creatinine 1.1, Est GFR ( Amer) > 60, Est GFR (Non- Af Amer) > 60, Random Glucose 84, Calcium 9.5, Total Bilirubin 0.5, AST 33, ALT 66 H, Alkaline Phosphatase 69, Total Protein 7.5, Albumin 4.3, Globulin 3.2, Albumin/Globulin Ratio 1.4, Lipase 30 - RAD Interpretation Radiology Orders: 08/30/18 14:21 ABD & PELVIS IV CONTRAST ONLY [CT] Stat - Medication Orders Current Medication Orders: Discontinued Medications Famotidine (Pepcid) 20 mg IVP STAT STA Stop: 08/30/18 14:22 Last Admin: 08/30/18 14:53 Dose: 20 mg IVP Administration Document 08/30/18 14:53 EQ (Rec: 08/30/18 14:53 EQ [facility] [place] Charges for Administration # of IVP Administrations 1 Sodium Chloride (Sodium Chloride 0.9%) 1,000 mls @ 999 mls/hr IV .Q1H1M STA Stop: 08/30/18 15:21 Last Admin: 08/30/18 14:52 Dose: 999 mls/hr eMAR Start Stop Document 08/30/18 14:52 EQ (Rec: 08/30/18 14:53 EQ [facility] [place]) Intravenous Solution Start Date 08/30/18 Start Time 14:53 Ondansetron HCl (Zofran Inj) 4 mg IVP STAT STA Stop: 08/30/18 14:22 Last Admin: 08/30/18 14:53 Dose: 4 mg IVP Administration Document 08/30/18 14:53 EQ (Rec: 08/30/18 14:53 EQ [facility] [place]) Charges for Administration # of IVP Administrations 1 Disposition/Present on Arrival - Present on Arrival Any Indicators Present on Arrival: No History of DVT/PE: No History of Uncontrolled Diabetes: No Urinary Catheter: No History of Decub. Ulcer: No History Surgical Site Infection Following: None - Disposition Have Diagnosis and Disposition been Completed?: Yes Diagnosis: Colitis Disposition: HOME/ ROUTINE Disposition Time: 16:45 Patient Plan: Discharge Patient Problems: Current Active Problems Problem Status Onset Colitis Acute Condition: GOOD Discharge Instructions (ExitCare): Diarrhea in Adolescents and Adults Additional Instructions: tylenol every 4 hours as needed for pain. Pepcid one tablet daily Cipro one tablet twice daily x 7 days Flagyl one tablet three daily x7 days Follow up with primary care physician within the next 2 days Follow up with the GI specialist within the next 2 days. Return immediately if symptoms worsen persist or if new symptoms develop: High fevers, increasing pain, vomiting, diarrhea or any other concerning symptoms develop Prescriptions: Ciprofloxacin [Cipro] 500 mg PO BID #14 tab Famotidine [Pepcid] 20 mg PO DAILY #30 tab metroNIDAZOLE [Flagyl] 500 mg PO TID #21 tab Referrals: Cecil Quinteros MD [Staff Provider] - Follow up with primary Felisha Fan MD [Medical Doctor] - Follow up with primary [facility] [Outside] - Follow up with primary Forms: [employer] (Faroese), WORK NOTE
[2018-08-30 18:30] VITALS: RESP 18
== END 2018-08-30 18:27 | disposition home or self-care (01) ==
LOC: ED 13:15
DX: K52.9 Noninfective gastroenteritis and colitis, unspecified (principal)
CPT/HCPCS: 74177; 80053; 81003; 83690; 85025; 96374; 96375; 99283; J2405; J7030; Q9967

== ENCOUNTER 2018-10-01 13:56 | Emergency (ER) | payer BC ==
[2018-10-01 14:13] VITALS: BMI 29.4
[2018-10-01 14:23] VITALS: RESP 18
--- NOTE | 2018-10-01 14:40 | ED PDOC ---
Arrival/HPI - General Chief Complaint: Cough, Cold, Congestion Time Seen by Provider: 10/01/18 14:09 Historian: Patient - History of Present Illness Narrative History of Present Illness (Text): 10/01/18 14:36 A 38 year old male, with no significant past medical history, presents to the emergency department complaining of cold for 1.5 weeks. Patient reports experiencing cough, rhinorrhea, chest pain, and congestion. States he was seen by his doctor located in [facility] in [place], [place], who prescribed him medication. Has been taking it for the past 4 days however has had no relief of symptoms, and has been taking Robitussin instead. Last Robitussin dosage was yesterday at 17:00. Patient denies any fever, chills, vomiting, or any other complaints at this time. Patient denies any history smoking/alcohol consumption. PMD: Dr. Alvarado (located in [facility] in [place], [place]). Past Medical History - Provider Review Nursing Documentation Reviewed: Yes - Past History Past History: No Previous - Infectious Disease Hx of Infectious Diseases: None - Tetanus Immunization Tetanus Immunization: Unknown - Cardiac Hx Cardiac Disorders: No - Pulmonary Hx Respiratory Disorders: No - Neurological Hx Neurological Disorder: No - HEENT Hx HEENT Disorder: No - Renal Hx Renal Disorder: No - Endocrine/Metabolic Hx Endocrine Disorders: No - Hematological/Oncological Hx Blood Disorders: No - Integumentary Hx Dermatological Disorder: No - Musculoskeletal/Rheumatological Hx Musculoskeletal Disorders: No - Gastrointestinal Hx Gastrointestinal Disorders: No - Genitourinary/Gynecological Hx Genitourinary Disorders: No - Psychiatric Hx Psychophysiologic Disorder: No Hx Substance Use: No - Anesthesia Hx Anesthesia: No Hx Anesthesia Reactions: No Hx Malignant Hyperthermia: No - Suicidal Assessment Feels Threatened In Home Enviroment: No Family/Social History - Physician Review Nursing Documentation Reviewed: Yes Family/Social History: No Known Family HX Smoking Status: Never Smoked Hx Alcohol Use: No Hx Substance Use: No Hx Substance Use Treatment: No Allergies/Home Meds Allergies/Adverse Reactions: Allergies Penicillins Allergy (Severe, Verified 10/01/18 14:23) SWELLING Review of Systems - Physician Review All systems were reviewed & negative as marked: Yes - Review of Systems Constitutional: absent: Fevers, Night Sweats ENT: Rhinorrhea, Sinus Congestion Respiratory: Cough Cardiovascular: Chest Pain Gastrointestinal: absent: Vomiting Physical Exam Vital Signs Reviewed: Yes Vital Signs Temp Pulse Resp BP Pulse Ox 10/01/18 14:13 98.8 F 57 L 18 137/84 98 Temperature: Afebrile Blood Pressure: Normal Pulse: Regular Respiratory Rate: Normal Appearance: Positive for: Well-Appearing, Non-Toxic, Comfortable Pain Distress: None Mental Status: Positive for: Alert and Oriented X 3 - Systems Exam Head: Present: Atraumatic, Normocephalic, Other (no tenderness to palpation to maxillary region) Pupils: Present: PERRL Extroacular Muscles: Present: EOMI Conjunctiva: Present: Normal Mouth: Present: Moist Mucous Membranes Nose (External): No: Other (no tenderness) Nose (Internal): Present: Rhinorrhea, Other (nasal congestion) Neck: Present: Normal Range of Motion Respiratory/Chest: Present: Clear to Auscultation, Good Air Exchange. No: Respiratory Distress, Accessory Muscle Use Cardiovascular: Present: Regular Rate and Rhythm, Normal S1, S2. No: Murmurs Abdomen: No: Tenderness, Distention, Peritoneal Signs Back: Present: Normal Inspection Upper Extremity: Present: Normal Inspection. No: Cyanosis, Edema Lower Extremity: Present: Normal Inspection. No: Edema Neurological: Present: GCS=15, CN II-XII Intact, Speech Normal Skin: Present: Warm, Dry, Normal Color. No: Rashes Psychiatric: Present: Alert, Oriented x 3, Normal Insight, Normal Concentration Medical Decision Making ED Course and Treatment: 10/01/18 14:39 Impression: 38 year old male with congestion, rhinorrhea, chest pain, and cough. Plan: -- Chest X-ray -- Zithromax -- Prednisone -- Influenza A/B Test -- Reassess and disposition Prior Visits: Notes and results from previous visits were reviewed. Patient was last seen here in the emergency department on 08/30/2018 for diffuse lower abdominal pain and multiple episodes of diarrhea. Patient was discharged home. Progress Notes: 10/01/2018 15:01 Chest X-ray IMPRESSION: No active pulmonary disease. Dictator: Raiza Sterling MD - RAD Interpretation Radiology Orders: 10/01/18 14:33 CHEST PORTABLE [RAD] Stat - Medication Orders Current Medication Orders: Discontinued Medications Azithromycin (Zithromax) 500 mg PO STAT STA; Protocol Stop: 10/01/18 14:34 Prednisone (Prednisone Tab) 60 mg PO STAT ONE Stop: 10/01/18 14:34 - Scribe Statement The provider has reviewed the documentation as recorded by the Clariibyessenia García Provider Scribe Attestation: All medical record entries made by the Scribe were at my direction and personally dictated by me. I have reviewed the chart and agree that the record accurately reflects my personal performance of the history, physical exam, medical decision making, and the department course for this patient. I have also personally directed, reviewed, and agree with the discharge instructions and disposition. Disposition/Present on Arrival - Present on Arrival Any Indicators Present on Arrival: No History of DVT/PE: No History of Uncontrolled Diabetes: No Urinary Catheter: No History of Decub. Ulcer: No History Surgical Site Infection Following: None - Disposition Have Diagnosis and Disposition been Completed?: Yes Diagnosis: Acute rhinosinusitis Disposition: HOME/ ROUTINE Disposition Time: 15:25 Patient Plan: Discharge Patient Problems: Current Active Problems Problem Status Onset Acute rhinosinusitis Acute Condition: STABLE Discharge Instructions (ExitCare): Sinusitis, Adult (DC), Sinus Headache (DC) Print Language: LATVIAN Additional Instructions: All medical record entries made by the Scribe were at my direction and personally dictated by me. I have reviewed the chart and agree that the record accurately reflects my personal performance of the history, physical exam, medical decision making, and the department course for this patient. I have also personally directed, reviewed, and agree with the discharge instructions and disposition Please take medications as prescribed. Prescriptions: Azithromycin [Z-Yoshi] 250 mg PO DAILY #6 tab Methylprednisolone [Medrol Dose Pack (21 tabs)] 4 mg PO DAILY #21 mg Referrals: Felisha Fan MD [Medical Doctor] - Follow up with primary [facility] [place] - Follow up with primary Forms: [facility] [employer] (German), WORK NOTE
--- NOTE | 2018-10-01 15:05 | RAD ---
Date of service: 10/01/2018 HISTORY: sob COMPARISON: 02/26/2018. FINDINGS: LUNGS: The lungs are well inflated and clear. PLEURA: No pleural effusions or pneumothorax. CARDIOVASCULAR: The heart is normal in size. No aortic atherosclerotic calcifications present. OSSEOUS STRUCTURES: Within normal limits for the patient's age. VISUALIZED UPPER ABDOMEN: Normal. OTHER FINDINGS: None. IMPRESSION: No active pulmonary disease.
[2018-10-01 15:51] VITALS: BP 137/76; PULSE 60; TEMP 98.2; O2SAT 99
== END 2018-10-01 15:51 | disposition home or self-care (01) ==
LOC: ED 13:56
DX: J01.90 Acute sinusitis, unspecified (principal)

== ENCOUNTER 2019-01-13 22:46 | Emergency (ER) | payer BC ==
[2019-01-13 22:56] VITALS: BMI 29.0
[2019-01-13 23:00] VITALS: BP 134/79; PULSE 85; RESP 14; TEMP 98.1; O2SAT 100
--- NOTE | 2019-01-13 23:55 | ED PDOC ---
Arrival/HPI - General Chief Complaint: Flu-like Symptoms Time Seen by Provider: 01/13/19 23:20 Historian: Patient - History of Present Illness Narrative History of Present Illness (Text): 01/13/19 23:52 38-year-old male with no significant past medical history complains of 2-week history of cough with body aches and chills with associated runny nose for the past 2 weeks. 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 Otherwise reports no fever, chest pain, shortness of breath, recent travel, sick contacts, back pain, vomiting, diarrhea. Of note, patient states that [facility] and was tested for the flu which was negative. Past Medical History - Past History Past History: No Previous - Infectious Disease Hx of Infectious Diseases: None - Tetanus Immunization Tetanus Immunization: Unknown - Cardiac Hx Cardiac Disorders: No - Pulmonary Hx Respiratory Disorders: No - Neurological Hx Neurological Disorder: No - HEENT Hx HEENT Disorder: No - Renal Hx Renal Disorder: No - Endocrine/Metabolic Hx Endocrine Disorders: No - Hematological/Oncological Hx Blood Disorders: No - Integumentary Hx Dermatological Disorder: No - Musculoskeletal/Rheumatological Hx Musculoskeletal Disorders: No - Gastrointestinal Hx Gastrointestinal Disorders: No - Genitourinary/Gynecological Hx Genitourinary Disorders: No - Psychiatric Hx Psychophysiologic Disorder: No Hx Substance Use: No - Anesthesia Hx Anesthesia: No Hx Anesthesia Reactions: No Hx Malignant Hyperthermia: No - Suicidal Assessment Feels Threatened In Home Enviroment: No Family/Social History Family/Social History: No Known Family HX Smoking Status: Never Smoked Hx Alcohol Use: No Hx Substance Use: No Hx Substance Use Treatment: No Allergies/Home Meds Allergies/Adverse Reactions: Allergies Penicillins Allergy (Severe, Verified 10/01/18 14:23) SWELLING Review of Systems - Review of Systems Constitutional: absent: Fatigue, Fevers ENT: Rhinorrhea. absent: Sore Throat, Sinus Congestion Respiratory: Cough. absent: SOB, Sputum Cardiovascular: absent: Chest Pain, Palpitations Gastrointestinal: absent: Abdominal Pain, Diarrhea, Vomiting Musculoskeletal: absent: Arthralgias, Back Pain, Neck Pain Skin: absent: Rash, Skin Lesions Neurological: absent: Headache, Dizziness Physical Exam Vital Signs Temp Pulse Resp BP Pulse Ox 01/13/19 22:56 98.1 F 85 14 134/79 100 Temperature: Afebrile Blood Pressure: Normal Pulse: Regular Respiratory Rate: Normal Appearance: Positive for: Well-Appearing, Non-Toxic, Comfortable Pain Distress: None Mental Status: Positive for: Alert and Oriented X 3 - Systems Exam Head: Present: Atraumatic, Normocephalic Pupils: Present: PERRL Extroacular Muscles: Present: EOMI Conjunctiva: Present: Normal Ears: Present: Normal, NORMAL TM Mouth: Present: Moist Mucous Membranes Pharnyx: Present: Normal. No: ERYTHEMA, EXUDATE Neck: Present: Normal Range of Motion. No: Meningeal Signs, Lymphadenopathy Respiratory/Chest: Present: Clear to Auscultation, Good Air Exchange. No: Respiratory Distress, Accessory Muscle Use Cardiovascular: Present: Regular Rate and Rhythm, Normal S1, S2. No: Murmurs Back: Present: Normal Inspection Upper Extremity: Present: Normal Inspection. No: Cyanosis, Edema Lower Extremity: Present: Normal Inspection. No: Edema Neurological: Present: GCS=15, CN II-XII Intact, Speech Normal Skin: Present: Warm, Dry, Normal Color. No: Rashes Psychiatric: Present: Alert, Oriented x 3, Normal Insight, Normal Concentration Medical Decision Making ED Course and Treatment: 01/13/19 23:55 Advised to follow up with primary care physician or referral provided in 1-2 days without fail. Advised to take medication as prescribed. Return to the emergency room at any time for any new or worsening symptoms. Patient states he fully agrees with and understands discharge instructions. States that he agrees with the plan and disposition. Verbalized and repeated discharge instructions and plan. I have given the patient opportunity to ask any additional questions. - PA / MANAGER REQUIREMENTS / Resident Statement MD/DO has reviewed & agrees with the documentation as recorded. Disposition/Present on Arrival - Present on Arrival Any Indicators Present on Arrival: No History of DVT/PE: No History of Uncontrolled Diabetes: No Urinary Catheter: No History of Decub. Ulcer: No History Surgical Site Infection Following: None - Disposition Have Diagnosis and Disposition been Completed?: Yes Diagnosis: Cough, Upper respiratory infection Disposition: HOME/ ROUTINE Disposition Time: 23:00 Patient Plan: Discharge Patient Problems: Current Active Problems Problem Status Onset Cough Acute Upper respiratory infection Acute Condition: STABLE Discharge Instructions (ExitCare): Acute Bronchitis, Cough in Adults, Viral Upper Respiratory Infection, Adult (DC) Additional Instructions: Thank you for letting us take care of you today. You were treated for cough, likely upper respiratory infection vs bronchitis. The emergency medical care you received today was directed at your acute symptoms. If you were prescribed any medication, please fill it and take as directed. It may take several days for your symptoms to resolve. Return to the Emergency Department if your symptoms worsen, do not improve, or if you have any other problems. Please contact your doctor in 2 days for re-evaluation and follow up / or call one of the physicians/clinics you have been referred to that are listed on the Patient Visit Information form that is included in your discharge packet. Bring any paperwork you were given at discharge with you along with any medications you are taking to your follow up visit. Our treatment cannot replace ongoing medical care by a primary care provider (PCP) outside of the emergency department. Thank you for allowing the [facility] team to be part of your care today. Prescriptions: Azithromycin [Z-Yoshi] 250 mg PO DAILY #6 tab Guaifenesin/Pseudoephedrne HCl [Guaifenesin-Pse ER 600-60 mg] 1 each PO BID PRN #[id number] PRN Reason: Other Referrals: [facility] at [facility] [place], [place] [Outside] - Follow up with primary Howard Truong MD [Staff Provider] - Follow up with primary Forms: [employer] (Syriac), WORK NOTE
== END 2019-01-14 00:13 | disposition home or self-care (01) ==
LOC: ED 22:46
DX: J06.9 Acute upper respiratory infection, unspecified (principal)